=== PATIENT | female | born 1955 | race Caucasian/White ===

== ENCOUNTER 2023-10-27 13:15 | Outpatient (RCR) | payer MEDICARE, OTHER, SELFPAY | END 2023-10-27 15:50 | disposition home or self-care (01) | LOC: RPT 13:15 | PROVIDERS: ATTENDING PHYSICIAN Internal Medicine Gastroenterology; PRIMARYCARE PHYSICIAN Internal Medicine Geriatric Medicine | DX: M62.89 Other specified disorders of muscle (principal); N39.3 Stress incontinence (female) (male); N39.41 Urge incontinence; Z73.6 Limitation of activities due to disability; M62.81 Muscle weakness (generalized); R27.8 Other lack of coordination | CPT/HCPCS: 97530 ==

== ENCOUNTER → 2024-04-16 10:21 | Outpatient (REF) | payer MEDICARE, OTHER, SELFPAY ==
[2024-04-16 12:23] LABS: % Basophils 0.4 % (0-2); % Eosinophils 0.5 % (0-6); % Immature Granulocytes 0.3 % (0-0.5); % Lymphocytes 30.3 % (20.5-51.1); % Neutrophils 61.5 % (42.2-75.2); Absolute Lymphocytes 2.3 10^3/uL (1.2-3.4); Absolute Monocytes 0.5 10^3/uL (0.1-0.6); Absolute Neutrophils 4.7 10^3/uL (1.4-6.5); Hematocrit 40.7 % (37.0-47.0); Hemoglobin 13.2 g/dL (12.0-16.0); Mean Corp Hgb Conc. 32.4 g/dL (33.0-37.0); Mean Corpuscular Hgb 29.7 pg (27.0-31.0); Mean Corpuscular Volume 91.7 fL (81.0-99.0); Mean Platelet Volume 9.8 fL (7.4-10.4); Nucleated Red Blood Cells % 0 %; Platelet Count 275 10^3/uL (130-400); Red Blood Cell Count 4.44 10^6/uL (4.20-5.40); Red Cell Dist. Width 12.5 % (11.5-14.5); White Blood Cell Count 7.6 10^3/uL (4.8-10.8)
[2024-04-16 12:44] LABS: ALT (SGPT) 17 U/L (0-35); AST (SGOT) 30 U/L (14-36); Albumin 4.7 g/dl (3.5-5.0); Alkaline Phosphatase 63 U/L (38-126); Blood Urea Nitrogen 14 mg/dl (7-17); Calcium 9.6 mg/dl (8.4-10.2); Carbon Dioxide 28 mmol/L (22-30); Chloride 97 mmol/L (98-107); Glucose 91 mg/dl (70-99); HDL Cholesterol 84 mg/dl; LDL Cholesterol, Calculated 104 mg/dl; Potassium 4.4 mmol/L (3.5-5.1); Sodium 134 mmol/L (135-145); Total Bilirubin 1.3 mg/dl (0.2-1.3); Total Cholesterol 206 mg/dl (50-199); Total Protein 7.6 g/dl (6.3-8.2); Triglyceride 91 mg/dl (10-149); Very Low Density Lipoprotein 18 mg/dl (0-30); eGFR > 60.00
[2024-04-16 12:57] LABS: C-Reactive Protein < 5.00 mg/L (0.0-10.00)
[2024-04-16 12:58] LABS: Erythrocyte Sed Rate 13 mm/hour (0-20)
== END ==
LOC: RAD 10:21
PROVIDERS: ATTENDING PHYSICIAN Nurse Practitioner Family
DX: R52 Pain, unspecified (principal); M19.90 Unspecified osteoarthritis, unspecified site; M54.9 Dorsalgia, unspecified; M25.551 Pain in right hip; E78.2 Mixed hyperlipidemia; R53.83 Other fatigue; I10 Essential (primary) hypertension
CPT/HCPCS: 36415; 72110; 73523; 80053; 80061; 85025; 85652; 86140; 86618

== ENCOUNTER → 2024-04-27 13:42 | Outpatient (REF) | payer MEDICARE, OTHER, SELFPAY ==
[2024-04-27 15:52] LABS: Blood Urea Nitrogen 16 mg/dl (7-17); Calcium 9.5 mg/dl (8.4-10.2); Carbon Dioxide 27 mmol/L (22-30); Chloride 98 mmol/L (98-107); Glucose 96 mg/dl (70-99); Potassium 4.4 mmol/L (3.5-5.1); Sodium 134 mmol/L (135-145); eGFR > 60.00
== END ==
LOC: REG 13:42
PROVIDERS: ATTENDING PHYSICIAN Nurse Practitioner Family; FAMILY PHYSICIAN Internal Medicine Geriatric Medicine
DX: R89.9 Unspecified abnormal finding in specimens from other organs, systems and tissues (principal)
CPT/HCPCS: 36415; 80048

== ENCOUNTER → 2024-05-05 11:16 | Outpatient (REF) | payer MEDICARE, OTHER, SELFPAY ==
[2024-05-05 12:28] LABS: Blood Urea Nitrogen 14 mg/dl (7-17); Calcium 9.3 mg/dl (8.4-10.2); Carbon Dioxide 28 mmol/L (22-30); Chloride 100 mmol/L (98-107); Glucose 87 mg/dl (70-99); Potassium 4.5 mmol/L (3.5-5.1); Sodium 136 mmol/L (135-145); eGFR > 60.00
[2024-05-05 12:36] LABS: Osmolality Serum 285 mOsm/kg (275-300)
[2024-05-05 13:06] LABS: Urine Sodium 13 mmol/L (30-90)
[2024-05-05 13:23] LABS: Osmolality Urine 248 mOsm/kg (300-900)
== END ==
LOC: REG 11:16
PROVIDERS: ATTENDING PHYSICIAN Nurse Practitioner Family
DX: E87.1 Hypo-osmolality and hyponatremia (principal)
CPT/HCPCS: 36415; 80048; 83930; 83935; 84300

== ENCOUNTER → 2024-09-07 10:48 | Outpatient (REF) | payer MEDICARE, OTHER, SELFPAY | LOC: WDC 10:48 | PROVIDERS: ATTENDING PHYSICIAN Obstetrics & Gynecology; FAMILY PHYSICIAN Internal Medicine Geriatric Medicine | DX: Z78.0 Asymptomatic menopausal state (principal); Z12.31 Encounter for screening mammogram for malignant neoplasm of breast | CPT/HCPCS: 77063; 77067; 77080 ==

== ENCOUNTER → 2024-11-09 09:18 | Outpatient (REF) | payer MEDICARE, OTHER, SELFPAY ==
[2024-11-09 10:08] LABS: % Basophils 0.8 % (0-2); % Eosinophils 0.8 % (0-6); % Immature Granulocytes 0.2 % (0-0.5); % Lymphocytes 35.8 % (20.5-51.1); % Neutrophils 55.4 % (42.2-75.2); Absolute Lymphocytes 1.8 10^3/uL (1.2-3.4); Absolute Monocytes 0.4 10^3/uL (0.1-0.6); Absolute Neutrophils 2.8 10^3/uL (1.4-6.5); Hematocrit 41.7 % (37.0-47.0); Hemoglobin 13.7 g/dL (12.0-16.0); Mean Corp Hgb Conc. 32.9 g/dL (33.0-37.0); Mean Corpuscular Hgb 30.2 pg (27.0-31.0); Mean Corpuscular Volume 91.9 fL (81.0-99.0); Mean Platelet Volume 9.8 fL (7.4-10.4); Nucleated Red Blood Cells % 0 %; Platelet Count 259 10^3/uL (130-400); Red Blood Cell Count 4.54 10^6/uL (4.20-5.40); Red Cell Dist. Width 12.6 % (11.5-14.5)
[2024-11-09 10:45] LABS: ALT (SGPT) 18 U/L (0-35); AST (SGOT) 31 U/L (14-36); Albumin 4.8 g/dl (3.5-5.0); Alkaline Phosphatase 65 U/L (38-126); Blood Urea Nitrogen 14 mg/dl (7-17); Calcium 9.4 mg/dl (8.4-10.2); Carbon Dioxide 31 mmol/L (22-30); Chloride 97 mmol/L (98-107); Glucose 89 mg/dl (70-99); HDL Cholesterol 80 mg/dl; LDL Cholesterol, Calculated 102 mg/dl; Potassium 4.1 mmol/L (3.5-5.1); Sodium 137 mmol/L (135-145); Total Bilirubin 1.4 mg/dl (0.2-1.3); Total Cholesterol 203 mg/dl (50-199); Total Protein 7.8 g/dl (6.3-8.2); Triglyceride 105 mg/dl (10-149); Very Low Density Lipoprotein 21 mg/dl (0-30); eGFR > 60.00
[2024-11-09 10:56] LABS: Urine Albumin Negative (Neg - Trace); Urine Bilirubin Negative (Negative); Urine Character Clear (Clear); Urine Color Straw; Urine Glucose Negative (Negative); Urine Ketone Negative (Negative); Urine Leukocyte Negative (Negative); Urine Nitrite Negative (Negative); Urine Occult Blood Negative (Negative); Urine Specific Gravity 1.005 (<1.030); Urine Urobilinogen Negative (Neg - 1+)
[2024-11-09 11:09] LABS: Vitamin D, 25-OH*** 53.4 ng/mL (30-80)
[2024-11-09 11:23] LABS: TSH 1.65 uIU/ml (0.47-4.68)
== END ==
LOC: REG 09:18
PROVIDERS: ATTENDING PHYSICIAN Internal Medicine Geriatric Medicine
DX: Z00.00 Encounter for general adult medical examination without abnormal findings (principal); I10 Essential (primary) hypertension; E78.2 Mixed hyperlipidemia; E03.9 Hypothyroidism, unspecified; E55.9 Vitamin D deficiency, unspecified; K21.9 Gastro-esophageal reflux disease without esophagitis; R13.10 Dysphagia, unspecified; M19.90 Unspecified osteoarthritis, unspecified site; M54.9 Dorsalgia, unspecified; J01.00 Acute maxillary sinusitis, unspecified; Z13.89 Encounter for screening for other disorder; G47.33 Obstructive sleep apnea (adult) (pediatric); M25.551 Pain in right hip
CPT/HCPCS: 36415; 80053; 80061; 81003; 82306; 84439; 84443; 85025

== ENCOUNTER 2024-11-19 09:55 | Outpatient (RCR) | payer MEDICARE, OTHER, SELFPAY | END 2024-11-19 23:59 | disposition home or self-care (01) | LOC: RPT 09:55 | PROVIDERS: ATTENDING PHYSICIAN Internal Medicine Geriatric Medicine | DX: M54.50 Low back pain, unspecified (principal); Z73.6 Limitation of activities due to disability; M47.816 Spondylosis without myelopathy or radiculopathy, lumbar region; M62.81 Muscle weakness (generalized) | CPT/HCPCS: 97110; 97162; 97530 ==

== ENCOUNTER → 2024-11-23 15:25 | Outpatient (REF) | payer MEDICARE, OTHER, SELFPAY | LOC: HWRAD 15:25 | PROVIDERS: ATTENDING PHYSICIAN Podiatrist Foot & Ankle Surgery; FAMILY PHYSICIAN Internal Medicine Geriatric Medicine | DX: M20.42 Other hammer toe(s) (acquired), left foot (principal) | CPT/HCPCS: 73630 ==

== ENCOUNTER 2024-12-13 09:58 | Outpatient (RCR) | payer MEDICARE, OTHER, SELFPAY | END 2024-12-13 23:59 | disposition home or self-care (01) | LOC: RPT 09:58 | PROVIDERS: ATTENDING PHYSICIAN Internal Medicine Geriatric Medicine | DX: M54.50 Low back pain, unspecified (principal); Z73.6 Limitation of activities due to disability; M47.816 Spondylosis without myelopathy or radiculopathy, lumbar region; M62.81 Muscle weakness (generalized) | CPT/HCPCS: 97110; 97140 ==

== ENCOUNTER → 2024-12-28 09:47 | Outpatient (REF) | payer MEDICARE, OTHER, SELFPAY | LOC: MRI 3T 09:47 | PROVIDERS: ATTENDING PHYSICIAN Neurological Surgery; FAMILY PHYSICIAN Internal Medicine Geriatric Medicine | DX: I67.1 Cerebral aneurysm, nonruptured (principal) | CPT/HCPCS: 70544 ==

== ENCOUNTER 2024-12-29 11:10 | Outpatient (RCR) | payer MEDICARE, OTHER, SELFPAY | END 2024-12-29 12:07 | disposition home or self-care (01) | LOC: RPT 11:10 | PROVIDERS: ATTENDING PHYSICIAN Internal Medicine Geriatric Medicine | DX: M54.50 Low back pain, unspecified (principal); M79.661 Pain in right lower leg; M79.662 Pain in left lower leg; M47.816 Spondylosis without myelopathy or radiculopathy, lumbar region; Z73.6 Limitation of activities due to disability; M62.81 Muscle weakness (generalized) | CPT/HCPCS: 97110 ==

== ENCOUNTER → 2025-03-01 10:27 | Outpatient (REF) | payer MEDICARE, OTHER, SELFPAY | LOC: RCS 10:27 | PROVIDERS: ATTENDING PHYSICIAN Internal Medicine Cardiovascular Disease; FAMILY PHYSICIAN Internal Medicine Geriatric Medicine | DX: R07.89 Other chest pain (principal); R06.02 Shortness of breath | CPT/HCPCS: 93017 ==

== ENCOUNTER → 2025-03-03 10:54 | Outpatient (REF) | payer MEDICARE, OTHER, SELFPAY | LOC: HWRCS 10:54 | PROVIDERS: ATTENDING PHYSICIAN Internal Medicine Cardiovascular Disease; FAMILY PHYSICIAN Internal Medicine Geriatric Medicine | DX: R07.89 Other chest pain (principal); R06.02 Shortness of breath | CPT/HCPCS: 93306 ==

== ENCOUNTER → 2025-03-07 10:29 | Outpatient (REF) | payer MEDICARE, OTHER, SELFPAY ==
[2025-03-07 11:35] LABS: % Basophils 0.3 % (0-2); % Eosinophils 0.3 % (0-6); % Immature Granulocytes 0.3 % (0-0.5); % Lymphocytes 21.5 % (20.5-51.1); % Neutrophils 71.6 % (42.2-75.2); Absolute Lymphocytes 1.9 10^3/uL (1.2-3.4); Absolute Monocytes 0.5 10^3/uL (0.1-0.6); Absolute Neutrophils 6.4 10^3/uL (1.4-6.5); Hematocrit 41.1 % (37.0-47.0); Mean Corp Hgb Conc. 34.1 g/dL (33.0-37.0); Mean Corpuscular Hgb 30.7 pg (27.0-31.0); Mean Corpuscular Volume 90.1 fL (81.0-99.0); Mean Platelet Volume 9.8 fL (7.4-10.4); Nucleated Red Blood Cells % 0 %; Platelet Count 273 10^3/uL (130-400); Red Blood Cell Count 4.56 10^6/uL (4.20-5.40); Red Cell Dist. Width 12.4 % (11.5-14.5); White Blood Cell Count 8.9 10^3/uL (4.8-10.8)
[2025-03-07 11:59] LABS: ALT (SGPT) 19 U/L (0-35); AST (SGOT) 26 U/L (14-36); Albumin 4.6 g/dl (3.5-5.0); Alkaline Phosphatase 48 U/L (38-126); Blood Urea Nitrogen 14 mg/dl (7-17); Calcium 9.8 mg/dl (8.4-10.2); Carbon Dioxide 29 mmol/L (22-30); Chloride 101 mmol/L (98-107); Glucose 95 mg/dl (70-99); Potassium 4.7 mmol/L (3.5-5.1); Sodium 137 mmol/L (135-145); Total Bilirubin 1.4 mg/dl (0.2-1.3); Total Protein 7.4 g/dl (6.3-8.2); eGFR > 60.00
== END ==
LOC: SDSPAT 10:29
PROVIDERS: ATTENDING PHYSICIAN Student in an Organized Health Care Education/Training Program; FAMILY PHYSICIAN Internal Medicine Geriatric Medicine; OTHER PHYSICIAN Internal Medicine Cardiovascular Disease
DX: R94.39 Abnormal result of other cardiovascular function study (principal); R07.89 Other chest pain
CPT/HCPCS: 36415; 80053; 85025

== ENCOUNTER 2025-03-08 13:46 | Day surgery (SDC) | payer MEDICARE, OTHER, SELFPAY ==
[2025-03-07 10:54] VITALS: BMI 20.3
[2025-03-08] VITALS (17 sets, daily range): BP systolic 77–140; BP diastolic 57–101
[2025-03-08] MEDS: LOPRESSOR 25 MG PO (19:53)
--- NOTE | 2025-03-08 21:21 | PTCARENOTE ---
Received pt @ 1900 from laboratory helper. AAOx3, VSS- SR/SB on monitor. Right radial site clean, dry, and intact with R band in place-- 10 mL of air. Pt will be discharged later this evening, after Rband has been removed. Discussed plan of care with pt.
Educating and reviewing discharge orders and limitations with cath site with pt. Verbalizes understanding.
--- NOTE | 2025-03-08 21:25 | ITS.CL.PN ---
Driver Merchandiser - Procedure Note
Procedure
Procedure Note:
CARDIAC CATHETERIZATION REPORT
Date of Procedure: 03/08/2025
Referring: Dr. Cheli Harris MD
Indication: anginal chest pain, positive exercise stress test
PROCEDURE(S)
1. left heart catheterization
2. coronary angiography
ACCESS: 6F right radial artery (closure: radial band)
CATHETERS
1. 6F JR4
2. 6F JL4
3. 6F EBU3.5 guide
MODERATE SEDATION: 30 minutes of moderate sedation was utilized. An independent director [employer] medical [employer] was present to assist with and help manage the patient's level of consciousness and physiologic status.
HEMODYNAMIC DATA
LV 130/2 (EDP 8) mmHg
AO 124/61 (mean 87) mmHg
CORONARY ANGIOGRAPHY
Dominance: left
LM: Short with minimal disease
LAD: Moderate caliber vessel giving rise to several small diagonal branches and wrapping around the apex. There is a 30% stenosis in the ostial to proximal LAD and long tubular stenosis in a tortuous segment of the mid LAD up to 50%. This area of
mid LAD disease is in a very tortuous segment.
LCx: Large dominant vessel giving rise to a small OM1, moderate caliber OM2, moderate caliber LPL branch, and moderate caliber LPDA. There are mild luminal irregularities only
RCA: Small and nondominant
iFR of mid LAD
An Omni wire was flushed and zeroed outside the body and then advanced to the left main. The wire introducer was removed and the catheter flushed with saline, after which pressure of the wire and guide were normalized. The wire was advanced to the
mid LAD and iFR recorded at 0.88, 0.88, and 0.88. iFR pullback was performed noting a focal pattern in the disease mid LAD segment contributing approximately delta 0.07 as well as a focal pattern at the ostial LAD contributing approximately delta
0.05. On return to the left main, iFR appropriately normalized to ~1.0, confirming lack of wire drift.
RADIATION: dose 191 mGy; DAP 16.9 Gy*cm2; fluoroscopy time 8.3 min
CONCLUSION AND RECOMMENDATION: Moderate mid LAD stenosis that meets borderline criteria for significance by iFR. Given the tortuous nature of the segment and the fact that part of the iFR contribution is from the angiographically mild ostial
stenosis, percutaneous revascularization would require long segment stenting in the mid LAD and ostial stenting back to the bifurcation of the dominant circumflex. The tortuous nature of the mid LAD segment raises concern for durability of stenting
in this area as well as high risk for iatrogenic vessel injury (i.e. dissection). The ostial lesion would be difficult to stent without crossing over into the left main and potentially jailing the dominant circumflex. Furthermore, the patient's
symptoms are somewhat atypical and may not be angina. Thus, overall recommendation is for initial medical management of single vessel coronary artery disease. If symptoms do not improve or progress despite optimal medical management, corroboration
of ischemia with noninvasive stress testing with imaging (SPECT, PET, or Echo) would be recommended prior to considering PCI of the LAD.
Copy to: Dr. Cheli Harris MD (rubber stamp assembler); Dr. Emile Vela MD (PCP)
Signed: Oliver Dixon MD, PhD
--- NOTE | 2025-03-08 22:48 | PTCARENOTE ---
Pt discharged @ 0. Discharge instructions and medication list discussed. Pt verbalizes understanding. IV removed. personnel monitor removed. Final set of vital signs taken. Pt denies questions about discharge @ this time.
[2025-03-09 08:23] LABS: ACT-LR - POC 261 Seconds (116-155)
== END 2025-03-08 22:20 | disposition home or self-care (01) ==
LOC: CATH 13:46
PROVIDERS: ATTENDING PHYSICIAN Student in an Organized Health Care Education/Training Program; FAMILY PHYSICIAN Internal Medicine Geriatric Medicine; OTHER PHYSICIAN Internal Medicine Cardiovascular Disease
DX: I25.10 Atherosclerotic heart disease of native coronary artery without angina pectoris (principal); I10 Essential (primary) hypertension; Z79.899 Other long term (current) drug therapy; Z79.890 Hormone replacement therapy; E03.9 Hypothyroidism, unspecified; E78.00 Pure hypercholesterolemia, unspecified
CPT/HCPCS: 99152; 93799; 93005; 93458; C1769; C1894

== ENCOUNTER → 2025-04-06 12:36 | Outpatient (REF) | payer MEDICARE, OTHER, SELFPAY | LOC: RCS 12:36 | PROVIDERS: ATTENDING PHYSICIAN Internal Medicine Cardiovascular Disease; FAMILY PHYSICIAN Internal Medicine Geriatric Medicine | DX: I45.10 Unspecified right bundle-branch block (principal); I10 Essential (primary) hypertension; R00.1 Bradycardia, unspecified | CPT/HCPCS: 93225; 93226 ==

== ENCOUNTER 2025-04-14 10:36 | Outpatient (RCR) | payer MEDICARE, OTHER, SELFPAY | END 2025-04-14 23:59 | disposition home or self-care (01) | LOC: CRHB 10:36 | PROVIDERS: Internal Medicine Cardiovascular Disease; ATTENDING PHYSICIAN Obstetrics & Gynecology; FAMILY PHYSICIAN Internal Medicine Geriatric Medicine | DX: I25.119 Atherosclerotic heart disease of native coronary artery with unspecified angina pectoris (principal); I70.0 Atherosclerosis of aorta; I10 Essential (primary) hypertension; E78.2 Mixed hyperlipidemia | CPT/HCPCS: G0422; G0423 ==

== ENCOUNTER 2025-05-19 10:45 | Outpatient (RCR) | payer MEDICARE, OTHER, SELFPAY | END 2025-05-19 23:59 | disposition home or self-care (01) | LOC: CRHB 10:45 | PROVIDERS: ATTENDING PHYSICIAN Obstetrics & Gynecology; FAMILY PHYSICIAN Internal Medicine Geriatric Medicine | DX: I25.119 Atherosclerotic heart disease of native coronary artery with unspecified angina pectoris (principal) | CPT/HCPCS: G0422; G0423 ==

== ENCOUNTER → 2025-05-30 16:15 | Outpatient (REF) | payer MEDICARE, OTHER, SELFPAY ==
[2025-05-30 16:52] LABS: Hematocrit 38.5 % (37.0-47.0); Hemoglobin 13.0 g/dL (12.0-16.0); Mean Corp Hgb Conc. 33.8 g/dL (33.0-37.0); Mean Corpuscular Volume 88.9 fL (81.0-99.0); Nucleated Red Blood Cells % 0 %; Platelet Count 276 10^3/uL (130-400); Red Cell Dist. Width 12.1 % (11.5-14.5)
[2025-05-30 17:28] LABS: Blood Urea Nitrogen 13 mg/dl (7-17); Calcium 9.6 mg/dl (8.4-10.2); Carbon Dioxide 28 mmol/L (22-30); Chloride 99 mmol/L (98-107); Glucose 91 mg/dl (70-99); Potassium 4.7 mmol/L (3.5-5.1); Sodium 132 mmol/L (135-145); eGFR > 60.00
== END ==
LOC: REG 16:15
PROVIDERS: ATTENDING PHYSICIAN Nurse Practitioner Family
DX: R42 Dizziness and giddiness (principal)
CPT/HCPCS: 36415; 80048; 85025

== ENCOUNTER → 2025-06-03 10:38 | Outpatient (REF) | payer MEDICARE, OTHER, SELFPAY ==
[2025-06-03 12:33] LABS: Blood Urea Nitrogen 17 mg/dl (7-17); Calcium 9.4 mg/dl (8.4-10.2); Carbon Dioxide 26 mmol/L (22-30); Chloride 101 mmol/L (98-107); Glucose 95 mg/dl (70-99); Potassium 4.9 mmol/L (3.5-5.1); Sodium 137 mmol/L (135-145); eGFR > 60.00
== END ==
LOC: REG 10:38
PROVIDERS: ATTENDING PHYSICIAN Nurse Practitioner Family; FAMILY PHYSICIAN Internal Medicine Geriatric Medicine
DX: I10 Essential (primary) hypertension (principal)
CPT/HCPCS: 36415; 80048

== ENCOUNTER 2025-06-16 09:30 | Outpatient (RCR) | payer MEDICARE, OTHER, SELFPAY | END 2025-06-16 23:59 | disposition home or self-care (01) | LOC: CRHB 09:30 | PROVIDERS: ATTENDING PHYSICIAN Obstetrics & Gynecology; FAMILY PHYSICIAN Internal Medicine Geriatric Medicine | DX: I25.119 Atherosclerotic heart disease of native coronary artery with unspecified angina pectoris (principal) | CPT/HCPCS: G0422; G0423 ==

== ENCOUNTER → 2025-06-29 08:08 | Outpatient (REF) | payer MEDICARE, OTHER, SELFPAY ==
[2025-06-29 10:20] LABS: HDL Cholesterol 61 mg/dl; LDL Cholesterol, Calculated 52 mg/dl; Very Low Density Lipoprotein 18 mg/dl (0-30)
[2025-06-29 10:37] LABS: CRP, Ultra Sensitive 0.68 mg/L (0.30-5.00)
[2025-07-01 05:49] LABS: Lipoprotein a (Lp a) 77 mg/dL (<=29)
== END ==
LOC: REG 08:08
PROVIDERS: ATTENDING PHYSICIAN Internal Medicine Cardiovascular Disease; FAMILY PHYSICIAN Internal Medicine Geriatric Medicine
DX: E78.2 Mixed hyperlipidemia (principal); I10 Essential (primary) hypertension; E03.9 Hypothyroidism, unspecified; E55.9 Vitamin D deficiency, unspecified; K21.9 Gastro-esophageal reflux disease without esophagitis; R13.10 Dysphagia, unspecified; M19.90 Unspecified osteoarthritis, unspecified site; M54.9 Dorsalgia, unspecified; J01.00 Acute maxillary sinusitis, unspecified; Z13.89 Encounter for screening for other disorder; G47.33 Obstructive sleep apnea (adult) (pediatric); M25.551 Pain in right hip
CPT/HCPCS: 36415; 80061; 82172; 83695; 86141

== ENCOUNTER 2025-07-19 14:02 | Outpatient (RCR) | payer MEDICARE, OTHER, SELFPAY | END 2025-07-19 23:59 | disposition home or self-care (01) | LOC: CRHB 14:02 | PROVIDERS: ATTENDING PHYSICIAN Internal Medicine Cardiovascular Disease; FAMILY PHYSICIAN Internal Medicine Geriatric Medicine | DX: I25.119 Atherosclerotic heart disease of native coronary artery with unspecified angina pectoris (principal) | CPT/HCPCS: G0422; G0423 ==

== ENCOUNTER 2025-08-15 13:01 | Outpatient (RCR) | payer MEDICARE, OTHER, SELFPAY ==
[2025-08-15 13:05] VITALS: BP 128/59
[2025-08-15] MEDS: LEQVIO 284 MG SC (13:18)
[2025-08-15 13:51] VITALS: BP 116/48
== END 2025-08-19 23:59 | disposition home or self-care (01) ==
LOC: OID 13:01
PROVIDERS: ATTENDING PHYSICIAN Internal Medicine Cardiovascular Disease; FAMILY PHYSICIAN Internal Medicine Geriatric Medicine
DX: I25.10 Atherosclerotic heart disease of native coronary artery without angina pectoris (principal); E78.2 Mixed hyperlipidemia
CPT/HCPCS: 96372; J1306

== ENCOUNTER 2025-08-16 12:34 | Outpatient (RCR) | payer MEDICARE, OTHER, SELFPAY | END 2025-08-16 12:37 | disposition home or self-care (01) | LOC: CRHB 12:34 | PROVIDERS: ATTENDING PHYSICIAN Internal Medicine Cardiovascular Disease; FAMILY PHYSICIAN Internal Medicine Geriatric Medicine | DX: I25.119 Atherosclerotic heart disease of native coronary artery with unspecified angina pectoris (principal) | CPT/HCPCS: G0422; G0423 ==

== ENCOUNTER → 2025-08-25 10:29 | Outpatient (REF) | payer MEDICARE, OTHER, SELFPAY | LOC: REG 10:29 | PROVIDERS: ATTENDING PHYSICIAN Internal Medicine Cardiovascular Disease; FAMILY PHYSICIAN Internal Medicine Geriatric Medicine | DX: E78.2 Mixed hyperlipidemia (principal) | CPT/HCPCS: 36415; 82550 ==